=== PATIENT | female | born 1960 | race Caucasian/White ===

== ENCOUNTER → 2019-10-29 15:08 | Outpatient (CLI) | payer BC, SELFPAY ==
[2019-10-29 15:30] LABS: Chloride 105 mmol/L (98-107); Sodium 141 mmol/L (136-145)
[2019-10-29 15:32] LABS: Alanine Aminotransferase 33 U/L (12-78); Aspartate Amino Transferase 43 U/L (14-36); Blood Urea Nitrogen 20 mg/dl (7-17); Estimated Glomerular Filt Rate 46 ml/min (>60); GFR (African American) 56 ML/MIN (>60)
[2019-10-29 15:33] LABS: Albumin Level 4.8 g/dl (3.5-5.0); Alkaline Phosphatase 61 U/L (38-126); Bilirubin,Total 0.7 mg/dl (0.2-1.3); Calcium 10.3 mg/dl (8.4-10.2); Carbon Dioxide 27 mmol/L (22.0-30.0); Chol/HDL Ratio 3.8 (1-3.5); Cholesterol 219 mg/dl (140-200); Globulin 2.4 g/dL (1.3-3.2); Glucose 123 mg/dl (74-100); HDL Cholesterol 58 mg/dl (40-60); Total Protein,Serum 7.2 g/dl (6.3-8.2); Triglycerides 252 mg/dl (30-150); VLDL Cholesterol 50 mg/dL (0-40)
[2019-10-29 15:45] LABS: Direct LDL Cholesterol 127.74 mg/dL (100-129)
[2019-10-29 16:05] LABS: Thyroid Stimulating Hormone 1.77 uIU/mL (0.465-4.68)
== END ==
PROVIDERS: Visit Provider Family Medicine
DX: E11.9 Type 2 diabetes mellitus without complications (principal); Z79.84 Long term (current) use of oral hypoglycemic drugs
CPT/HCPCS: 80053; 80061; 83036; 84443

== ENCOUNTER → 2020-05-30 13:50 | Outpatient (CLI) | payer BC, SELFPAY ==
[2020-05-30 14:14] LABS: Alanine Aminotransferase 37 U/L (12-78); Albumin Level 4.7 g/dl (3.5-5.0); Albumin/Globulin Ratio 1.7 (1.1-1.8); Alkaline Phosphatase 50 U/L (38-126); Anion Gap 13.8 mEq/L (5-15); Aspartate Amino Transferase 41 U/L (14-36); Bilirubin,Total 0.4 mg/dl (0.2-1.3); Blood Urea Nitrogen 21 mg/dl (7-17); Calcium 11.1 mg/dl (8.4-10.2); Carbon Dioxide 27 mmol/L (22.0-30.0); Chloride 108 mmol/L (98-107); Chol/HDL Ratio 3.8 (1-3.5); Cholesterol 203 mg/dl (140-200); Estimated Glomerular Filt Rate 46 ml/min (>60); GFR (African American) 56 ML/MIN (>60); Globulin 2.7 g/dL (1.3-3.2); Glucose 137 mg/dl (74-100); HDL Cholesterol 53 mg/dl (40-60); Potassium 4.8 mmoL/L (3.5-5.1); Sodium 144 mmol/L (136-145); Total Protein,Serum 7.4 g/dl (6.3-8.2); Triglycerides 237 mg/dl (30-150); VLDL Cholesterol 47 mg/dL (0-40)
[2020-05-30 14:17] LABS: Basophils # 0.1 K/mm3 (0-0.2); Basophils % 1.7 % (0.1-2.0); Eosinophils # 0.4 K/mm3 (0.0-0.4); Eosinophils % 4.7 % (0.1-12.0); Hematocrit 42.6 % (37.0-47.0); Hemoglobin 13.9 g/dL (12.2-16.2); Lymphocytes # 2.4 K/mm3 (0.7-4.5); Lymphocytes % 30.7 % (10-50); Mean Corpuscular HGB Conc 32.6 g/dL (31.8-35.4); Mean Corpuscular Hemoglobin 27.7 pg (27.0-31.2); Mean Corpuscular Volume 84.8 fl (81-99); Mean Platelet Volume 9.3 fl (7.4-10.4); Monocytes # 0.8 K/mm3 (0.1-1.0); Monocytes % 10.6 % (1.7-9.3); Neutrophils % 52.3 % (37.0-80.0); Platelet Count 258 K/mm3 (142-424); Red Blood Count 5.02 M/mm3 (4.20-5.40); Red Cell Distribution Width 13.5 % (11.5-17.5); White Blood Count 7.7 K/mm3 (4.8-10.8)
[2020-05-30 14:25] LABS: Direct LDL Cholesterol 110.08 mg/dL (100-129)
[2020-05-30 14:43] LABS: Thyroid Stimulating Hormone 1.78 uIU/mL (0.465-4.68)
== END ==
PROVIDERS: Visit Provider Family Medicine
DX: E11.9 Type 2 diabetes mellitus without complications (principal); E03.9 Hypothyroidism, unspecified; Z79.84 Long term (current) use of oral hypoglycemic drugs
CPT/HCPCS: 80053; 80061; 83036; 84443; 85025

== ENCOUNTER → 2020-06-14 16:43 | Outpatient (CLI) | payer BC, SELFPAY ==
--- NOTE | 2020-06-14 16:43 | MM_ITS ---
PROCEDURE: MM DIG SCREENING MAMM BI W/CAD Digital Breast Tomosynthesis Included CLINICAL INDICATION: breast ca screening There is no personal or family history of breast cancer. COMPARISON: MG SCN DIG BREAST TOMOSYN PEREZ from 06/16/2018 TECHNIQUE: Standard CC and MLO images and 3D Tomosynthesis was obtained. R2 CAD reviewed. FINDINGS: Prominent diffuse heterogenic fibroglandular densities are seen throughout both breasts. There is a mole marker upper outer right breast. There is a benign-appearing macrocalcification left breast. There is no new or suspicious lesion in either breast and no suspicious microcalcifications. IMPRESSION: Stable diffusely dense parenchymal pattern with no suspicious lesions seen BI-RAD Category: 2 Benign Finding(s) FOLLOW-UP: 1YR 1 Year Follow-up (A letter has been sent to the patient regarding results of the study.) Dictated by: Dr. Bryan Hagan MD 06/17/2020 08:54 Dr. Bryan Hagan MD in [place] 06/17/2020 08:54
== END ==
PROVIDERS: PCP Family Medicine; Visit Provider Family Medicine
DX: Z12.31 Encounter for screening mammogram for malignant neoplasm of breast (principal)
CPT/HCPCS: 77063; 77067

== ENCOUNTER → 2020-06-27 16:47 | Outpatient (CLI) | payer BC, SELFPAY ==
[2020-06-27 18:22] LABS: Creatinine,Urine Random 78 mg/dL (Not Estab.); Microalbumin < 6.000 mg/L (0-16.7)
== END ==
PROVIDERS: Visit Provider Family Medicine
DX: E11.9 Type 2 diabetes mellitus without complications (principal); Z79.84 Long term (current) use of oral hypoglycemic drugs
CPT/HCPCS: 82043; 82570

== ENCOUNTER → 2021-07-20 17:29 | Outpatient (CLI) | payer BC, SELFPAY ==
[2021-07-20 15:12] LABS: Chloride 109 mmol/L (98-107); Potassium 4.6 mmoL/L (3.5-5.1); Sodium 142 mmol/L (136-145)
[2021-07-20 15:13] LABS: Basophils # 0.1 K/mm3 (0-0.2); Basophils % 1.6 % (0.1-2.0); Eosinophils # 0.3 K/mm3 (0.0-0.4); Eosinophils % 4.3 % (0.1-12.0); Hematocrit 40.6 % (37.0-47.0); Hemoglobin 12.9 g/dL (12.2-16.2); Lymphocytes # 2.3 K/mm3 (0.7-4.5); Lymphocytes % 37.1 % (10-50); Mean Corpuscular HGB Conc 31.9 g/dL (31.8-35.4); Mean Corpuscular Hemoglobin 27.4 pg (27.0-31.2); Mean Platelet Volume 10.6 fl (7.4-10.4); Monocytes # 0.6 K/mm3 (0.1-1.0); Monocytes % 9.5 % (1.7-9.3); Neutrophils # 2.9 K/mm3 (1.8-7.8); Neutrophils % 47.5 % (37.0-80.0); Platelet Count 263 K/mm3 (142-424); Red Blood Count 4.72 M/mm3 (4.20-5.40); Red Cell Distribution Width 13.8 % (11.5-17.5); White Blood Count 6.2 K/mm3 (4.8-10.8)
[2021-07-20 15:14] LABS: Blood Urea Nitrogen 20 mg/dl (7-17); Estimated Glomerular Filt Rate 57 ml/min (>60); GFR (African American) 68 ML/MIN (>60)
[2021-07-20 15:15] LABS: Alanine Aminotransferase 33 U/L (12-78); Albumin Level 4.4 g/dl (3.5-5.0); Alkaline Phosphatase 43 U/L (38-126); Anion Gap 13.6 mEq/L (5-15); Aspartate Amino Transferase 41 U/L (14-36); Bilirubin,Total 0.6 mg/dl (0.2-1.3); Calcium 9.1 mg/dl (8.4-10.2); Carbon Dioxide 24 mmol/L (22.0-30.0); Chol/HDL Ratio 3.8 (1-3.5); Cholesterol 196 mg/dl (140-200); Globulin 2.2 g/dL (1.3-3.2); Glucose 112 mg/dl (74-100); HDL Cholesterol 51 mg/dl (40-60); Total Protein,Serum 6.6 g/dl (6.3-8.2); Triglycerides 158 mg/dl (30-150); VLDL Cholesterol 32 mg/dL (0-40)
[2021-07-20 15:26] LABS: Direct LDL Cholesterol 105.65 mg/dL (100-129)
[2021-07-20 15:45] LABS: Thyroid Stimulating Hormone 3.67 uIU/mL (0.465-4.68)
[2021-07-20 17:05] LABS: Hemoglobin A1C 7.3 % (4.0-6.0)
== END ==
PROVIDERS: Visit Provider Family Medicine
DX: E03.9 Hypothyroidism, unspecified (principal); E11.9 Type 2 diabetes mellitus without complications; Z79.84 Long term (current) use of oral hypoglycemic drugs
CPT/HCPCS: 80053; 80061; 83036; 84443; 85025

== ENCOUNTER → 2021-10-02 08:09 | Outpatient (CLI) | payer BC, SELFPAY ==
--- NOTE | 2021-10-02 08:13 | MM_ITS ---
PROCEDURE INFORMATION: Exam: MG Bilateral Screening 3D Mammography Exam date and time: 10/02/2021 8:08 AM Age: 61 years old Clinical indication: Screening examination TECHNIQUE: Imaging protocol: Bilateral Screening tomosynthesis and 2D mammography including computer-aided detection (CAD) when performed. COMPARISON: 1. MG MM DIG SCREENING MAMM BI W/CAD 06/14/2020 4:46 PM 2. MG SCN DIG BREAST TOMOSYN PEREZ 06/16/2018 3:44 PM FINDINGS: MAMMOGRAPHY: Breast composition: The breast is heterogeneously dense, which may obscure small masses. Mass: None. Architectural distortion: No new or suspicious architectural distortion. Calcifications: No new or suspicious calcifications are present Asymmetric density: No new or suspicious asymmetric density is present Skin thickening: None. Axillary adenopathy: None. IMPRESSION: No mammographic evidence of malignancy. Recommend annual screening mammography unless otherwise clinically indicated. ASSESSMENT: BI-RADS category 1: Negative
--- NOTE | 2021-10-02 08:13 | XR_ITS ---
FINAL REPORT TECHNIQUE: Bone mineral density was calculated of the lumbar spine and hip. CLINICAL HISTORY: . post menopausal FINDINGS: DEXA BONE DENSITY AXIAL SKELETON Using L1-4, the bone mineral density of the spine is 0.986 g/cm2, corresponding to T-score of -0.6. Using the right hip, the bone mineral density of the femoral neck is 0.674 g/cm2, corresponding to a T-score of -1.6. NOTE: T-score: Standard deviation compared with peak bone mass of young adult mean. *Following the recommendations of the International Society of Bone densitometry, classification of hip BMD is based on the lower of two T-scores; total hip or femoral neck. IMPRESSION: Diminished bone mineral density of the right hip consistent with osteopenia. FRAX 10 year fracture risk is 14 % for major osteoporotic fracture. Reviewed, Interpreted and Dictated by Zak Hope III, MD Transcribed by Luisa Barber Authenticated and [facility]
== END ==
PROVIDERS: PCP Family Medicine; Visit Provider Nurse Practitioner Family
DX: Z12.31 Encounter for screening mammogram for malignant neoplasm of breast (principal); Z13.820 Encounter for screening for osteoporosis; Z78.0 Asymptomatic menopausal state
CPT/HCPCS: 77063; 77067; 77080

== ENCOUNTER → 2022-05-11 03:13 | Outpatient (CLI) | payer BC, SELFPAY ==
[2022-05-11 18:47] LABS: Basophils # 0.1 K/mm3 (0-0.2); Basophils % 1.5 % (0.1-2.0); Eosinophils # 0.3 K/mm3 (0.0-0.4); Eosinophils % 3.6 % (0.1-12.0); Hematocrit 42.1 % (37.0-47.0); Hemoglobin 13.8 g/dL (12.2-16.2); Lymphocytes # 3.2 K/mm3 (0.7-4.5); Lymphocytes % 36.9 % (10-50); Mean Corpuscular HGB Conc 32.8 g/dL (31.8-35.4); Mean Corpuscular Volume 82.5 fl (81-99); Mean Platelet Volume 9.8 fl (7.4-10.4); Monocytes # 0.8 K/mm3 (0.1-1.0); Neutrophils # 4.2 K/mm3 (1.8-7.8); Neutrophils % 48.9 % (37.0-80.0); Platelet Count 322 K/mm3 (142-424); Red Cell Distribution Width 13.9 % (11.5-17.5); White Blood Count 8.6 K/mm3 (4.8-10.8)
[2022-05-11 18:54] LABS: Creatinine,Urine Random 95 mg/dL (Not Estab.); Microalbumin < 6.000 mg/L (0-16.7)
[2022-05-11 18:58] LABS: Alanine Aminotransferase 35 U/L (12-78); Albumin Level 4.9 g/dl (3.5-5.0); Alkaline Phosphatase 44 U/L (38-126); Anion Gap 13.8 mEq/L (5-15); Aspartate Amino Transferase 41 U/L (14-36); Bilirubin,Total 0.5 mg/dl (0.2-1.3); Blood Urea Nitrogen 17 mg/dl (7-17); Calcium 10.1 mg/dl (8.4-10.2); Carbon Dioxide 27 mmol/L (22.0-30.0); Chloride 106 mmol/L (98-107); Cholesterol 176 mg/dl (140-200); Estimated Glomerular Filt Rate 56 ml/min (>60); GFR (African American) 68 ML/MIN (>60); Globulin 2.5 g/dL (1.3-3.2); Glucose 113 mg/dl (74-100); HDL Cholesterol 44 mg/dl (40-60); Potassium 4.8 mmoL/L (3.5-5.1); Sodium 142 mmol/L (136-145); Total Protein,Serum 7.4 g/dl (6.3-8.2); Triglycerides 217 mg/dl (30-150); VLDL Cholesterol 43 mg/dL (0-40)
[2022-05-11 19:09] LABS: Direct LDL Cholesterol 97.84 mg/dL (100-129)
[2022-05-11 19:14] LABS: 25-OH Vitamin D, Total 67.5 ng/mL (30-100)
[2022-05-11 19:28] LABS: Thyroid Stimulating Hormone 1.17 uIU/mL (0.465-4.68)
[2022-05-11 21:40] LABS: Hemoglobin A1C 7.9 % (4.0-6.0)
== END ==
PROVIDERS: PCP Family Medicine; Visit Provider Family Medicine
DX: E03.9 Hypothyroidism, unspecified (principal); E11.9 Type 2 diabetes mellitus without complications; Z79.84 Long term (current) use of oral hypoglycemic drugs
CPT/HCPCS: 80053; 80061; 82043; 82306; 82570; 83036; 84443; 85025

== ENCOUNTER 2022-07-15 16:32 | Emergency (ER) | payer BC, SELFPAY ==
--- NOTE | 2022-07-15 16:42 | EXP.UTC ---
Discharge Plan Disposition Patient Disposition: Home, Self-Care Condition: Good Prescriptions Prescriptions: New amoxicillin-pot clavulanate 875-125 mg Tablet 1 tab PO Q12H Qty: 20 0RF No Action zolpidem [Ambien] 10 mg tablet See Rx Instructions PO HS PRN (Reason: sleep) Qty: 30 5RF Rx Instructions: 1/2 to 1 PO at bedtime nightly PRN; atenolol 25 mg tablet See Rx Instructions .ROUTE .COMPLEX Qty: 90 3RF Dose Instruction: TAKE 1 TABLET DAILY Rx Instructions: TAKE 1 TABLET DAILY atorvastatin 40 mg tablet See Rx Instructions .ROUTE .COMPLEX Qty: 90 3RF Dose Instruction: TAKE 1 TABLET DAILY Rx Instructions: TAKE 1 TABLET DAILY azelastine 0.05 % drops 1 drp OPHTHALMIC BID Qty: 6 0RF All Day Allergy (cetirizine) 10 mg capsule 10 mg PO DAILY Qty: 90 0RF cholecalciferol (vitamin D3) 10 mcg (400 unit) capsule 10 mcg PO DAILY Qty: 90 3RF fenofibric acid (choline) 135 mg capsule,delayed release(DR/EC) See Rx Instructions .ROUTE .COMPLEX Qty: 90 3RF Dose Instruction: TAKE 1 CAPSULE DAILY Rx Instructions: TAKE 1 CAPSULE DAILY levothyroxine [Synthroid] 100 mcg tablet See Rx Instructions .ROUTE .COMPLEX Qty: 90 3RF Dose Instruction: TAKE 1 TABLET DAILY Rx Instructions: TAKE 1 TABLET DAILY lisinopril 2.5 mg tablet See Rx Instructions .ROUTE .COMPLEX Qty: 90 3RF Dose Instruction: TAKE 1 TABLET DAILY Rx Instructions: TAKE 1 TABLET DAILY metformin 500 mg tablet See Rx Instructions .ROUTE .COMPLEX Qty: 180 2RF Dose Instruction: TAKE 1 TABLET TWICE A DAY Rx Instructions: TAKE 1 TABLET TWICE A DAY Januvia 100 mg tablet 100 mg PO DAILY Qty: 90 3RF Referrals Follow up/Referrals: Jovanni Henning MD [Primary Care Provider] - See instructions Activity Restrictions/Add. Instructions Additional Instructions/Restrictions: Take tylenol for pain. Take the medications as directed. Follow up with your regular doctor. Follow up with your dentist as soon as you can get in with them. GO TO THE ER FOR ANY WORSENING SYMPTOMS Clinical Impressions Clinical Impression: Abscess, dental Instructions Patient Instructions: Tooth Abscess, DI for Tooth Abscess Discharge ED Provider: Charbel Butt [facility] HPI General Stated complaint: swellin right side jaw and under chin Time Seen by Provider: 07/15/22 16:42 History of Present Illness Provider Complaint: She c/o right lower jaw tooth pain and gum swelling. she has an appointment with her dentist, but its not for several days. Related Data Previous Rx's Medication Instructions Recorded atenolol 25 mg tablet See Rx Instructions .Route 05/11/22 .COMPLEX #90 tabs atorvastatin 40 mg tablet See Rx Instructions .Route 05/11/22 .COMPLEX #90 tabs azelastine 0.05 % eye drops 1 drp ophthalmic (eye) BID #6 mL 05/11/22 cetirizine 10 mg capsule (All Day 10 mg PO DAILY #90 caps 05/11/22 Allergy (cetirizine)) cholecalciferol (vitamin D3) 10 10 mcg PO DAILY #90 caps 05/11/22 mcg (400 unit) capsule fenofibric acid (choline) 135 mg See Rx Instructions .Route 05/11/22 capsule,delayed release .COMPLEX #90 caps levothyroxine 100 mcg tablet See Rx Instructions .Route 05/11/22 (Synthroid) .COMPLEX #90 tabs lisinopril 2.5 mg tablet See Rx Instructions .Route 05/11/22 .COMPLEX #90 tabs metformin 500 mg tablet See Rx Instructions .Route 05/11/22 .COMPLEX #180 tabs zolpidem 10 mg tablet (Ambien) See Rx Instructions PO HS PRN 05/11/22 sleep #30 tabs sitagliptin phosphate 100 mg 100 mg PO DAILY #90 tabs 05/14/22 tablet (Januvia) amoxicillin 875 mg-potassium 1 tab PO Q12H #20 tabs 07/15/22 clavulanate 125 mg tablet Allergies Allergy/AdvReac Type Severity Reaction Status Date / Time naproxen Allergy Severe Swelling Verified 05/11/22 15:31 of Lip/Tongue/Throat [facility] Disclaimer: The information contai
[2022-07-15 16:45] VITALS: BP 155/65; PULSE 84; RESP 19; TEMP 37; O2SAT 97; BMI 20.1
[2022-07-15 17:39] VITALS: BP 155/65; PULSE 84; RESP 19; TEMP 37; O2SAT 97
== END 2022-07-15 18:00 | disposition home or self-care (01) ==
PROVIDERS: Emergency Provider Nurse Practitioner Family; PCP Family Medicine
DX: R22.0 Localized swelling, mass and lump, head (principal); R68.84 Jaw pain
CPT/HCPCS: 96372; 99212; 99214; G0463; J0696

== ENCOUNTER → 2022-12-17 23:42 | Outpatient (CLI) | payer BC, SELFPAY ==
[2022-12-17 19:01] LABS: Basophils # 0.1 K/mm3 (0-0.2); Basophils % 0.7 % (0.1-2.0); Eosinophils # 0.2 K/mm3 (0.0-0.4); Eosinophils % 2.9 % (0.1-12.0); Hematocrit 39.9 % (37.0-47.0); Hemoglobin 13.1 g/dL (12.2-16.2); Lymphocytes # 2.5 K/mm3 (0.7-4.5); Lymphocytes % 34.9 % (10-50); Mean Corpuscular Hemoglobin 27.7 pg (27.0-31.2); Mean Corpuscular Volume 84.1 fl (81-99); Mean Platelet Volume 9.7 fl (7.4-10.4); Monocytes # 0.7 K/mm3 (0.1-1.0); Monocytes % 9.9 % (1.7-9.3); Neutrophils # 3.7 K/mm3 (1.8-7.8); Neutrophils % 51.5 % (37.0-80.0); Platelet Count 256 K/mm3 (142-424); Red Blood Count 4.74 M/mm3 (4.20-5.40); Red Cell Distribution Width 14.3 % (11.5-17.5); White Blood Count 7.2 K/mm3 (4.8-10.8)
[2022-12-17 19:19] LABS: Alanine Aminotransferase 24 U/L (12-78); Albumin Level 4.5 g/dl (3.5-5.0); Albumin/Globulin Ratio 1.8 (1.1-1.8); Alkaline Phosphatase 32 U/L (38-126); Aspartate Amino Transferase 30 U/L (14-36); Bilirubin,Total 0.2 mg/dl (0.2-1.3); Blood Urea Nitrogen 21 mg/dl (7-17); Carbon Dioxide 28 mmol/L (22.0-30.0); Chloride 105 mmol/L (98-107); Chol/HDL Ratio 3.1 (1-3.5); Cholesterol 170 mg/dl (140-200); Estimated Glomerular Filt Rate 46 ml/min (>60); GFR (African American) 55 ML/MIN (>60); Globulin 2.5 g/dL (1.3-3.2); Glucose 157 mg/dl (74-100); HDL Cholesterol 55 mg/dl (40-60); Sodium 144 mmol/L (136-145); Triglycerides 165 mg/dl (30-150); VLDL Cholesterol 33 mg/dL (0-40)
[2022-12-17 19:20] LABS: Hemoglobin A1C 6.7 % (4.0-6.0)
[2022-12-17 19:30] LABS: Direct LDL Cholesterol 92.62 mg/dL (100-129)
[2022-12-17 19:52] LABS: Thyroid Stimulating Hormone 0.91 uIU/mL (0.465-4.68)
== END ==
PROVIDERS: PCP Family Medicine; Visit Provider Family Medicine
DX: E11.9 Type 2 diabetes mellitus without complications (principal); Z79.84 Long term (current) use of oral hypoglycemic drugs; Z79.899 Other long term (current) drug therapy
CPT/HCPCS: 80053; 80061; 83036; 84443; 85025

== ENCOUNTER 2023-11-18 19:33 | Outpatient (CLI) | payer BC, SELFPAY ==
[2023-11-18 20:04] LABS: Basophils # 0.1 K/mm3 (0-0.2); Basophils % 1.9 % (0.1-2.0); Eosinophils # 0.2 K/mm3 (0.0-0.4); Eosinophils % 3.2 % (0.1-12.0); Hematocrit 40.4 % (37.0-47.0); Hemoglobin 13.3 g/dL (12.2-16.2); Lymphocytes # 1.9 K/mm3 (0.7-4.5); Mean Corpuscular Hemoglobin 28.1 pg (27.0-31.2); Mean Corpuscular Volume 84.9 fl (81-99); Mean Platelet Volume 10.3 fl (7.4-10.4); Monocytes # 0.6 K/mm3 (0.1-1.0); Monocytes % 10.8 % (1.7-9.3); Neutrophils # 2.8 K/mm3 (1.8-7.8); Neutrophils % 50.1 % (37.0-80.0); Platelet Count 280 K/mm3 (142-424); Red Blood Count 4.75 M/mm3 (4.20-5.40); Red Cell Distribution Width 15.1 % (11.5-17.5); White Blood Count 5.7 K/mm3 (4.8-10.8)
[2023-11-18 20:25] LABS: Creatinine,Urine Random 70 mg/dL (Not Estab.)
[2023-11-18 20:26] LABS: Alanine Aminotransferase 28 U/L (12-78); Albumin Level 4.3 g/dl (3.5-5.0); Albumin/Globulin Ratio 1.7 (1.1-1.8); Alkaline Phosphatase 31 U/L (38-126); Anion Gap 13.5 mEq/L (5-15); Aspartate Amino Transferase 35 U/L (14-36); Bilirubin,Total 0.5 mg/dl (0.2-1.3); Blood Urea Nitrogen 19 mg/dl (7-17); Calcium 10.1 mg/dl (8.4-10.2); Carbon Dioxide 25 mmol/L (22.0-30.0); Chloride 108 mmol/L (98-107); Chol/HDL Ratio 4.1 (1-3.5); Cholesterol 203 mg/dl (140-200); Estimated Glomerular Filt Rate 56 ml/min (>60); GFR (African American) 68 ML/MIN (>60); Globulin 2.6 g/dL (1.3-3.2); Glucose 110 mg/dl (74-100); HDL Cholesterol 49 mg/dl (40-60); Potassium 4.5 mmoL/L (3.5-5.1); Sodium 142 mmol/L (136-145); Total Protein,Serum 6.9 g/dl (6.3-8.2); Triglycerides 137 mg/dl (30-150); VLDL Cholesterol 27 mg/dL (0-40)
[2023-11-18 20:37] LABS: Direct LDL Cholesterol 116.12 mg/dL (100-129)
[2023-11-18 20:41] LABS: Hemoglobin A1C 6.5 % (4.0-6.0); Microalbumin < 6.000 mg/L (0-16.7)
[2023-11-18 20:42] LABS: 25-OH Vitamin D, Total 81.1 ng/mL (30-100)
[2023-11-18 20:43] LABS: T4 (Thyroxine) 11.5 ug/dl (5.53-11.0)
[2023-11-18 20:56] LABS: Thyroid Stimulating Hormone 1.01 uIU/mL (0.465-4.68)
== END 2023-11-18 23:59 | disposition home or self-care (01) ==
LOC: LAB.DROPOF 19:35
PROVIDERS: PCP Family Medicine; Visit Provider Family Medicine
DX: I10 Essential (primary) hypertension (principal); E03.9 Hypothyroidism, unspecified; G47.00 Insomnia, unspecified; M85.80 Other specified disorders of bone density and structure, unspecified site; E11.9 Type 2 diabetes mellitus without complications; Z79.84 Long term (current) use of oral hypoglycemic drugs
CPT/HCPCS: 80050; 80053; 80061; 82043; 82306; 82570; 83036; 84436; 84443; 85025

== ENCOUNTER 2023-12-25 15:04 | Outpatient (CLI) | payer BC, SELFPAY ==
--- NOTE | 2023-12-25 15:13 | XR_ITS ---
FINAL REPORT TECHNIQUE: Bone mineral density was calculated of the lumbar spine and hip. CLINICAL HISTORY: Osteopenia COMPARISON: 10/02/2021 FINDINGS: Using L1-4, the bone mineral density of the spine is 1.033 g/cm2, corresponding to T-score of -0.1. Using the left hip, the bone mineral density of the femoral neck is 0.712 g/cm2, corresponding to a T-score of -1.2. NOTE: T-score: Standard deviation compared with peak bone mass of young adult mean. *Following the recommendations of the International Society of Bone densitometry, classification of hip BMD is based on the lower of two T-scores; total hip or femoral neck. IMPRESSION: Diminished bone mineral density of the left hip consistent with low bone density. Normal bone mineral density of the lumbar spine. Reviewed, Interpreted and Dictated by Zak Hope III, MD Transcribed by Kelsey Dsouza Authenticated and [facility]
--- NOTE | 2023-12-25 15:13 | MM_ITS ---
PROCEDURE INFORMATION: Exam: MG Bilateral Screening 3D Mammography Exam date and time: 12/25/2023 3:06 PM Age: 63 years old Clinical indication: Screening examination. TECHNIQUE: Imaging protocol: Bilateral Screening tomosynthesis and 2D mammography including computer-aided detection (CAD) when performed. COMPARISON: 1. MG MM DIG SCREENING MAMM BI W/CAD 10/02/2021 8:08 AM 2. MG MM DIG SCREENING MAMM BI W/CAD 06/14/2020 4:46 PM FINDINGS: MAMMOGRAPHY: Breast composition: There are scattered areas of fibroglandular density. Mass: None. Architectural distortion: None. Calcifications: No suspicious calcifications. Asymmetric density: None. Skin thickening: None. Axillary adenopathy: None. IMPRESSION: No mammographic evidence of malignancy. Annual screening is recommended unless otherwise clinically indicated. ASSESSMENT: BI-RADS Category 1: Negative
--- NOTE | 2023-12-25 15:13 | US_ITS ---
FINAL REPORT CLINICAL HISTORY: Left thyroid nodule FINDINGS: Sonographic images of the thyroid gland were obtained. The right thyroid lobe measures 34 mm. in length. The left thyroid lobe measures 27 mm. in length. The thyroid isthmus measures 1 mm. The echogenicity is normal. No mass or nodule is identified. IMPRESSION: Unremarkable thyroid ultrasound Authenticated and [facility]
== END 2023-12-25 23:59 | disposition home or self-care (01) ==
LOC: RAD 15:07
PROVIDERS: PCP Family Medicine; Visit Provider Family Medicine
DX: M85.80 Other specified disorders of bone density and structure, unspecified site (principal); E04.1 Nontoxic single thyroid nodule; Z12.39 Encounter for other screening for malignant neoplasm of breast
CPT/HCPCS: 76536; 77063; 77067; 77080

== ENCOUNTER 2024-05-25 08:58 | Outpatient (CLI) | payer BC, SELFPAY ==
[2024-05-25 19:50] LABS: Basophils # 0.1 K/mm3 (0-0.2); Basophils % 1.1 % (0.1-2.0); Eosinophils # 0.2 K/mm3 (0.0-0.4); Eosinophils % 2.9 % (0.1-12.0); Hematocrit 39.4 % (37.0-47.0); Hemoglobin 12.4 g/dL (12.2-16.2); Lymphocytes % 28.8 % (10-50); Mean Corpuscular HGB Conc 31.5 g/dL (31.8-35.4); Mean Corpuscular Hemoglobin 26.6 pg (27.0-31.2); Mean Corpuscular Volume 84.5 fl (81-99); Mean Platelet Volume 11.9 fl (7.4-10.4); Monocytes # 1.1 K/mm3 (0.1-1.0); Neutrophils # 3.6 K/mm3 (1.8-7.8); Neutrophils % 51.1 % (37.0-80.0); Platelet Count 258 K/mm3 (142-424); Red Blood Count 4.66 M/mm3 (4.20-5.40); Red Cell Distribution Width 14.2 % (11.5-17.5)
[2024-05-25 20:02] LABS: Creatinine,Urine Random 60 mg/dL (Not Estab.)
[2024-05-25 20:03] LABS: Microalbumin/Creatinine Ratio 28.3
[2024-05-25 20:49] LABS: Alanine Aminotransferase 30 U/L (12-78); Albumin Level 4.5 g/dl (3.5-5.0); Albumin/Globulin Ratio 2.5 (1.1-1.8); Alkaline Phosphatase 30 U/L (38-126); Anion Gap 14.5 mEq/L (5-15); Aspartate Amino Transferase 34 U/L (14-36); Bilirubin,Total 0.2 mg/dl (0.2-1.3); Blood Urea Nitrogen 20 mg/dl (7-17); Calcium 10.5 mg/dl (8.4-10.2); Carbon Dioxide 25 mmol/L (22.0-30.0); Chloride 108 mmol/L (98-107); Chol/HDL Ratio 3.6 (1-3.5); Cholesterol 169 mg/dl (140-200); Estimated Glomerular Filt Rate 45 ml/min (>60); GFR (African American) 55 ML/MIN (>60); Globulin 1.8 g/dL (1.3-3.2); Glucose 119 mg/dl (74-100); HDL Cholesterol 47 mg/dl (40-60); Potassium 4.5 mmoL/L (3.5-5.1); Sodium 143 mmol/L (136-145); Total Protein,Serum 6.3 g/dl (6.3-8.2); Triglycerides 105 mg/dl (30-150); VLDL Cholesterol 21 mg/dL (0-40)
[2024-05-25 21:00] LABS: Direct LDL Cholesterol 88.99 mg/dL (100-129)
[2024-05-25 21:19] LABS: Thyroid Stimulating Hormone 0.97 uIU/mL (0.465-4.68)
[2024-05-25 21:31] LABS: HIV Combo NEGATIVE (Negative)
[2024-05-25 21:39] LABS: Hepatitis C Ab Qual. W/ RFX NEGATIVE (Negative)
== END 2024-05-25 23:59 | disposition home or self-care (01) ==
LOC: LAB.DROPOF 05-26 09:39
PROVIDERS: PCP Family Medicine; Visit Provider Family Medicine
DX: E03.9 Hypothyroidism, unspecified (principal); I10 Essential (primary) hypertension; E11.9 Type 2 diabetes mellitus without complications; Z79.84 Long term (current) use of oral hypoglycemic drugs
CPT/HCPCS: 80053; 80061; 82043; 82306; 82570; 84443; 85025; 86803; 87389

== ENCOUNTER 2024-12-04 10:10 | Outpatient (CLI) | payer BC, SELFPAY ==
[2024-12-04 15:35] LABS: Alanine Aminotransferase 29 U/L (12-78); Albumin Level 4.5 g/dl (3.5-5.0); Albumin/Globulin Ratio 2.1 (1.1-1.8); Alkaline Phosphatase 35 U/L (38-126); Anion Gap 14.0 mEq/L (5-15); Aspartate Amino Transferase 42 U/L (14-36); Bilirubin,Total 0.2 mg/dl (0.2-1.3); Blood Urea Nitrogen 19 mg/dl (7-17); Calcium 10.2 mg/dl (8.4-10.2); Carbon Dioxide 25 mmol/L (22.0-30.0); Chloride 107 mmol/L (98-107); Creatinine,Serum 0.90 mg/dl (0.52-1.04); Estimated Glomerular Filt Rate 63 ml/min (>60); GFR (African American) 77 ML/MIN (>60); Globulin 2.1 g/dL (1.3-3.2); Glucose 108 mg/dl (74-100); Potassium 5.0 mmoL/L (3.5-5.1); Sodium 141 mmol/L (136-145); Total Protein,Serum 6.6 g/dl (6.3-8.2)
[2024-12-04 16:04] LABS: Thyroid Stimulating Hormone 2.81 uIU/mL (0.465-4.68)
[2024-12-04 16:22] LABS: Vitamin B12 319 pg/mL (239-931)
--- OUTSIDE RECORDS SUMMARY | 2024-12-07 12:44 | XMS_ITS | Clinical Summary ---
Author Organization [facility] Address [address] [facility] [address] [place] [address] [place] [address] Phone Care Team Providers Care Consulting Actuary Name Role Phone Jovanni Henning MD Primary Care Provider [phone] Social History Tobacco Use Types Packs/Day Years Used Date Smoking Tobacco: Never Assessed Comments Unknown Sex and Gender Information Value Date Recorded Sex Assigned at Not on file Legal Sex Female 3:34 PM EDT Gender Identity Not on file Sexual Orientation Not on file Plan of Treatment Health Maintenance Due Date Last Done Comments Annual Wellness Exam 01/27/1964 Hepatitis C Screening 1979 DTaP/TDaP/Td (1 - Tdap) 01/27/1980 Cervical Cancer Screening 1982 Pap Smear 1982 HPV/Pap Cotest 1991 Breast Cancer Screening 2001 Cologuard 2006 Colon Cancer Screening 2006 Colonoscopy 2006 FIT 2006 Sigmoidoscopy 2006 Virtual Colonography 2006 Pneumococcal Vaccine 50+ (1 of 1 - PCV) 2011 Zoster (1 of 2) 2011 COVID-19 Vaccine (2023-2 5 season) 2023 Influenza Vaccine (#1) 2024 Hepatitis B Vaccine Aged Out No longe r eligible based on patient's age to complete this topic Meningococcal B Vaccine Aged Out No l onger eligible based on patient's age to complete this topic Insurance ANTHEM Member Subscriber Plan / Payer ( fective 2016-Present) Name:Ciarra Abbott Relation to Subscriber:Self Name:Ciarra Abbott Payer ID:[id number] (NAIC) Type:Not on file Address: [address] [place] [id number] ANTHEM Member Subscriber Plan / Payer ( fective 2016-Present) Name:Tawnya Abbottricia Relation to Subscriber:Self Name:Ciarra Abbott Payer ID:[id number] (NAIC) Type:Not on file Address: [id number] Care Teams Consulting Actuary Relationship Specialty Start Date End Date Jovanni Henning MD PCP - General Family Medicine 02/23/13
--- OUTSIDE RECORDS SUMMARY | 2024-12-07 12:44 | XMS_ITS | Encounter Summary ---
Author Organization [facility] Address [address] [place] [address] Care Team Providers Care Manager Army Name Role Phone Jovanni Henning MD Primary Care Provider [phone] Reason for Referral * Consult, Test & Treat (Routine) - Not Needed Specialty Diagnoses / Procedures Referred By Contact Referred To Contact Anesthesiology / Pain Management Diagnoses Herniated nucleus pulposus, lumbar NonstaffRio MD [address] [facility] Phone: tel: [facility] [address] [place] [address] Phone: tel: fax: Referral ID Status Reason Start Date Expiration Date V isits Requested Visits Authorized [id number] Not Needed 10/14/2018 99 99 Encounter Details Date Type Department Care Team (Late st Contact Info) Description 10/14/2018 Orders Only Pain Management [address] [place] [address] Tiffany Foote CASUALTY UNDERWRITER [address] [address] Herniated nucleus pulposus, lumbar (Primary Dx) Social History Tobacco Use Types Packs/Day Years Used Date Smoking Tobacco: Never Smokeless Tobacco: Never Alcohol Use Standard Drinks/Week Comments Yes 0 (1 standard drink = 0.6 oz pur e alcohol) occasioal Comments No Sex and Gender Information Value Date Recorded Sex Assigned at Not on file Legal Sex Female 2:57 PM EDT Gender Identity Not on file Sexual Orientation Not on file documented as of this encounter Plan of Treatment Scheduled Referrals Name Type Priority Associated Diagnoses Order Schedule PMA INTERVENTIONAL PAIN MANAGEMENT REFERRAL Outpatient Referral Routine Herniated nucleus pulposus, lumbar Ordered: 10/14/2018 documented as of this encounter Visit Diagnoses Diagnosis Herniated nucleus pulposus, lumbar- Primary Displacement of lumbar intervertebral disc without myelopathy documented in this encounter Care Teams Manager Army Relationship Specialty Start Date End Date Jovanni Henning MD PCP - General Family Medicine 07/25/16 documented as of this encounter
--- OUTSIDE RECORDS SUMMARY | 2024-12-07 12:44 | XMS_ITS | Clinical Summary ---
Author Organization [facility] Address [address] [place] [address] Care Team Providers Care Hydroelectric Station Chief Name Role Phone Jovanni Henning MD Primary Care Provider [phone] Allergies Active Allergy Reactions Criticality Noted Date Comments Naproxen Swelling Medium 07/26/2016 Medications atorvastatin (LIPITOR) 40 mg Tablet Take 40 mg by mouth every evening. Active atenolol (TENORMIN) 25 mg tablet Take 25 mg by mouth daily. Active metFORMIN (GLUCOPHAGE) 500 mg tablet Take 500 mg by mouth 2 times daily (with meals). Active lisinopril (PRINIVIL, ZESTRIL) 2.5 mg tablet Take 2.5 mg by mouth daily. Active levothyroxine (SYNTHROID) 100 mcg tablet Take 100 mcg by mouth daily. Active CALCIUM CARB/VIT D3/MINERALS (CALCIUM CARBONATE-VIT D3-MIN) 600 mg (1,500 mg)-400 unit Tablet, Chewable Take 600 mg by mouth daily. Active cetirizine (ZYRTEC) 10 mg Tablet Take 10 mg by mouth daily. Active Fenofibric Acid (TRILIPIX) 135 mg Capsule, Delayed Release(E.C.) Take 135 mg by mouth daily. Active montelukast (SINGULAIR) 10 mg Tablet Take 10 mg by mouth daily. Active empagliflozin (JARDIANCE) 25 mg Tablet Take 25 mg by mouth daily. Active fluticasone propionate (FLONASE) 50 mcg/actuation nasal spray Lyme 1 Lyme into nose daily. Active Hydrocodone-Acet aminophen (NORCO) 10-325 mg per tablet Take 1 Tab by mouth every 6 hours as needed for Pain. Active Active Problems Problem Noted Date Diagnosed Date Diabetes mellitus type 2 in nonobese 08/16/2016 DDD (degenerative disc disease), lumbosacral 09/2016 Displacement of lumbar inter vertebral disc without myelopathy 07/26/2016 Spinal stenosis, lumbar 07/26/2016 Facet arthropathy, lumbosacral 07/26/2016 Social History Tobacco Use Types Packs/Day Years Used Date Smoking Tobacco: Never Smokeless Tobacco: Never Alcohol Use Standard Drinks/Week Comments Yes 0 (1 standard drink = 0.6 oz pur e alcohol) occasioal Comments No Sex and Gender Information Value Date Recorded Sex Assigned at Not on file Legal Sex Female 2:57 PM EDT Gender Identity Not on file Sexual Orientation Not on file Last Filed Vital Signs Vital Sign Reading Time Taken Comments Blood Pressure 126/78 11/21/2018 1:48 PM EDT Pulse 64 11/21/2018 1:48 PM EDT Temperature 36.7 C (98.1 F) 11/21/2018 1:05 PM EDT Respiratory Rate 18 11/21/2018 1:48 PM EDT Oxygen Saturation 97% 11/21/2018 1:48 PM EDT Inhaled Oxygen Concentration - - Weight 59 kg (130 lb) 11/21/2018 1:05 PM EDT Height 167.6 cm (5' 6 ) 11/21/2018 1:05 PM EDT Body Mass Index 20.98 11/21/2018 1:05 PM EDT Plan of Treatment Health Maintenance Due Date Last Done Comments Cologuard 1961 Colonoscopy 1961 Colorectal Cancer Screening 1961 FIT 1961 Lipid Monitoring 1978 Tetanus Vaccination (Every 10 Years) 1979 Cervical Cancer Screening 1982 Hepatitis C Virus (HCV) Screening 1982 Breast Cancer Screening 2011 Pneumococcal Vaccine: 50+ Years (1 of 1 - PCV) 011 Zoster-RZV(Shingrix) (1 of 2) 2011 COVID-19 Vaccine (1 - 2023-25 season) 2023 Depression Screening 04/22/2024 Influenza Vaccination (#1) 2024 RSV Vaccines (1 - 1-dose 75+ series) 01/27/2036 Insurance ANTHEM Care Teams Hydroelectric Station Chief Relationship Specialty Start Date End Date Jovanni Henning MD PCP - General Family Medicine 07/25/16
== END 2024-12-04 23:59 ==
LOC: LAB.DROPOF 12-07 12:42
PROVIDERS: PCP Family Medicine; Visit Provider Family Medicine
DX: E03.9 Hypothyroidism, unspecified (principal); E11.9 Type 2 diabetes mellitus without complications; I10 Essential (primary) hypertension; M85.80 Other specified disorders of bone density and structure, unspecified site; R20.2 Paresthesia of skin
CPT/HCPCS: 80053; 82607; 84443